=== PATIENT | male | born 1970 | race Caucasian/White ===

== ENCOUNTER 2017-02-19 09:38 | Emergency (ER) | payer BC ==
[~2017-02-19] VITALS: Ht 172.7 cm; Wt 104.3 kg
[~2017-02-19 09:38] MED LIST: GLYBURIDE 5MG TA5 MG PO; MEDROL 4MG. DOSE4 MG PO; NOVOLOG MI100 UNITS/ SC; OMEPRAZOLE40 MG PO; PRAVACHOL20 MG PO; REGLAN10 M2 PO; VALACYCLOVIR HCL1 G1 PO; VALTREX1 GM PO
[2017-02-19] MEDS ORDERED: ZITHROMAX Z-PA250 M2 PO (10:46)
[2017-02-19] MEDS ORDERED: FLONASE ALLERG9.9 ML NS (10:46)
--- NOTE | 2017-02-19 10:48 | [facility]gent Treatment [facility] Report ---
History of Present Issue Date/Time Seen by Provider 02/19/17 1042 Visit Reason Pt arrived:Walked Presenting Problem:PT STATES SINUS PRESSURE/PAIN, PRODUCTIVE COUGH FOR FOUR WEEKS Location if Accident: Onset of symptoms date/time:/ or onset unknown for:MEDICAL HX UNKNOWN Have you (or family members/close friends) recently traveled outside the [place]? N If Yes, where/when: Have you had exposure to infectious disease within the past month? TB? Other? Specify: Source patient Exam Limitations no limitations Comment 6-year-old male presents for sinus pressure, green nasal congestion, dental pain , and coughing up green sputum for about 4 weeks but becoming worse. ALLERGIES Coded Allergies: lisinopril (Mild, 11/06/16) Home Medications Active Scripts Metoclopramide HCl (Reglan) 10 MG PO TID #15 TAB Prov: 11/06/16 VALACYCLOVIR HCL (Valtrex) 1 GM PO BID #20 TAB Prov: 10/23/16 Methylprednisolone (Medrol Dose Young) 4 MG PO UD #1 YOUNG Prov: 10/23/16 Reported Medications Pravastatin Sodium (Pravachol) 20 MG PO QHS #90 Glyburide (Glyburide 5MG) 5 MG PO BIDD #90 Omeprazole (Omeprazole 40MG) 40 MG PO DAILY #30 VALACYCLOVIR HCL (Valacyclovir) 1 GM PO DAILY #20 Ins Asp-Prt 70/Asp 30(Nvlogmx) (Novolog Mix 70-30 Flexpen Syrn) 50 UNITS SC BID #30 History Medical History General Angina: No UT: No Hypertension? Yes Hyperlipidemia? No CHF? No DVT? No PE? No COPD? No Asthma? No Anemia? No GERD? Yes Gastric ulcers? No GI Bleed? No Hernia? No Thyroid Problems? No Hypothyroidism? No CVA? No Seizures? No Diabetes? Yes Insulin Dependent: Yes Insulin Pump: No Home FSBS? No Renal Insuffiency? No UTI? No Stones? No BPH? No GB Disease: No Nephritic Syndrome? No Asplenia? No Hepatitis? No Sickle Cell Disease? No Arthritis? No Migraines? No Cataracts? No Glaucoma? No MRSA? No HIV? No TB? No Anxiety? No Depression? No Cancer? No Immunization HX DT/Tetanus 5-10 YRS Surgical Hx Previous Surgery?Y ESOPHAGUS TONSILS R WRIST Social History Smoking Hx Smoker: Never Smoker Tobacco: No Alcohol Alcohol: No Review of Systems All Other Systems Reviewed and Negative Constitutional see HPI ENT see HPI, nose discharge, nose congestion. Respiratory see HPI, cough Cardiovascular denies no symptoms reported Gastrointestinal denies no symptoms reported Genitourinary denies: no symptoms reported. Musculoskeletal denies no symptoms reported Skin denies no symptoms reported Physical Exam Vital Signs Vital Signs Date Time Temp Pulse Resp B/P Pulse O2 O2 Flow FiO2 Ox Delivery Rate 02/19 1009 98.1 84 20 166/90 99 - WBC >12,000 or <4,000 or 10% bands? 2 or more SIRS Criteria Met? B/P:166/90 MAP:115 Creatinine >2.0? UA output<0.5ml/kg/hr for 2 hrs? Platelet count >100,000? Lactate >2.0mmol/1? INR >1.2 or PTT > than 60 sec? Evidence of Organ Dysfunction? Provider documented clinical suspician of infection? Sepsis Criteria Count: 1 Sepsis Risk: General Appearance normal appearance, no apparent distress Eye Exam - bilateral eye normal exam, bilateral eye PERRL, bilateral eye EOMI Ear, Nose, Throat hearing grossly normal, sinus pain/drainage, nasal congestion, pharyngeal erythema Neck normal inspection, full range of motion Respiratory Status Yes: trachea midline, chest symmetrical. No: respiratory distress. Lung Sounds bilateral: normal breath sounds, lungs clear. Cardiovascular normal exam, no peripheral edema Neurologic alert, normal exam, oriented x 3 Medical Decision Making LABS/Meds/Orders Pt receiving controlled substance in ED? No Results/Orders Current Medication Orders Sig/Armond Start time Last Medication Dose Route Stop Time Status Admin Dexamethasone Sodium 0 .STK-MED ONE 02/19 1052 DC Phosphate .ROUTE Dexamethasone Sodium 4 MG ONCE ONE 02/19 1045 DC 02/19 Phosphate IM 02/19 1046 1054 Departure Departure Time of Disposition 1044 Disposition DC Home or Self Care(routine) Clinical Impression Primary Impression: Sinusitis Qualifiers: Sinusitis location: maxillary Chronicity: acute Recurrence: non- recurrent Qualified Code: J01.00 - Acute maxillary sinusitis, unspecified Condition STABLE Referrals RICK JAQUEZ (Family) Patient Instructions DI for Sinusitis, Sinusitis Additional Instructions Watch glucose close due to the steroid injection Follow-up with primary care this week If symptoms worsen or do not improve return or be seen in the ER Discharge Counseling Counseled pt/family regarding diagnosis, medications/RX, home care, follow up needs Prescriptions Current Visit Scripts Azithromycin (Zithromax) 250 MG PO DAILY #6 TAB USE DIRECTED. Fluticasone Propionate (Flonase Allergy Relief) 9.9 ML NS DAILY 14 Days at 1117
[2017-02-19 11:21] VITALS: BP 166/90
== END 2017-02-19 11:21 | disposition home or self-care (01) ==
LOC: UTC 09:38
DX: J01.00 Acute maxillary sinusitis, unspecified (principal); K21.9 Gastro-esophageal reflux disease without esophagitis; E11.9 Type 2 diabetes mellitus without complications; Z79.4 Long term (current) use of insulin; I10 Essential (primary) hypertension; Z79.899 Other long term (current) drug therapy